=== PATIENT | female | born 1950 | race Caucasian/White ===

== ENCOUNTER → 2016-12-24 | Outpatient (CLI) | payer MEDICARE, BC | END | disposition home or self-care (01) | LOC: RAD.S 09:07 → PTH.S 09:15 | DX: C34.81 Malignant neoplasm of overlapping sites of right bronchus and lung (principal); C34.2 Malignant neoplasm of middle lobe, bronchus or lung; I10 Essential (primary) hypertension; R59.0 Localized enlarged lymph nodes; E27.8 Other specified disorders of adrenal gland; R91.8 Other nonspecific abnormal finding of lung field; K80.20 Calculus of gallbladder without cholecystitis without obstruction; G31.9 Degenerative disease of nervous system, unspecified; Z98.890 Other specified postprocedural states ==